=== PATIENT | female | born 1990 | race Caucasian/White ===

== ENCOUNTER 2022-01-01 12:08 | Emergency (ER) | payer BC, SELFPAY ==
[2022-01-01 12:18] VITALS: BP 139/85; PULSE 112; RESP 16; TEMP 36.9; O2SAT 99
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
[2022-01-01] MEDS: Acetaminophen 500 MG TAB 1000 MG PO (12:48)
[2022-01-01] MEDS: Cyclobenzaprine 10 MG TAB PO (12:48)
[2022-01-01 13:31] VITALS: BP 140/84; PULSE 119; RESP 14; TEMP 37; O2SAT 99
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
[2022-01-01] MEDS: Cyclobenzaprine 10 MG TAB, 3 TABS/BTL PO (15:11)
== END 2022-01-01 15:10 | disposition home or self-care (01) ==
PROVIDERS: Emergency Provider Registered Nurse Emergency
DX: S13.4XXA Sprain of ligaments of cervical spine, initial encounter (principal); V49.49XA Driver injured in collision with other motor vehicles in traffic accident, initial encounter; Y99.0 Civilian activity done for income or pay
CPT/HCPCS: 81025; 99284; 70450; 72125; 99283

== ENCOUNTER 2022-02-10 22:44 | Outpatient (REF) | payer BC, SELFPAY ==
[2022-02-12 11:15] LABS: COVID-19 RT-PCR UVMMC Result Negative (Negative)
== END 2022-02-10 22:45 | disposition home or self-care (01) ==
LOC: LBN 22:44
PROVIDERS: Visit Provider Physician Assistant
DX: J02.9 Acute pharyngitis, unspecified (principal); R05.8 Other specified cough; R51.9 Headache, unspecified; Z20.822 Contact with and (suspected) exposure to COVID-19
CPT/HCPCS: U0003; 87070